=== PATIENT | male | born 1985 | race Two or more races ===

== ENCOUNTER 2016-10-09 00:38 | Emergency (ER) | payer OTHER ==
[2016-10-09 01:10] LABS: ALBUMIN 4.7 g/dL (3.5-5.0); ALKALINE PHOSPHATASE 155 U/L (38-126); ALT 29 U/L (21-72); AST 21 U/L (17-59); BILIRUBIN, DIRECT 0.3 mg/dL (0.0-0.4); BILIRUBIN, TOTAL 1.1 mg/dL (0.2-1.3); BLOOD UREA NITROGEN 27 mg/dL (9-20); CHLORIDE 89 mmol/L (98-107); EST GLOMERULAR FILTRATION RATE > 60 mL/min; LIPASE 257 U/L (23-300); POTASSIUM 3.7 mmol/L (3.5-5.1); SODIUM 128 mmol/L (137-145); TOTAL PROTEIN 8.7 g/dL (6.3-8.2)
[2016-10-09] MEDS ORDERED: ONDANSETRON HCL 4 MG/2 ML VIAL ONE (01:10)
[2016-10-09] MEDS ORDERED: FAMOTIDINE IN SALINE, ISO-OSM 20 MG/50 ML PIGGYBACK IV ONE (01:11)
[2016-10-09 01:18] LABS: GLUCOSE 342 mg/dL (70-100)
[2016-10-09 01:20] LABS: BASOPHILS 0.2 % (0.0-2.0); EOSINOPHILS 0.1 % (0.0-6.0); HEMATOCRIT 50.3 % (42.0-54.0); HEMOGLOBIN 17.1 g/dL (14.0-18.0); LYMPHOCYTES 12.9 % (20.0-40.0); LYMPHOCYTES# 1.7 X 10^3uL (0.8-3.8); MEAN CORPUSCULAR HEMOGLOBIN 27.2 pg (29.0-35.0); MEAN PLATELET VOLUME 8.3 fL (7.4-10.4); MONOCYTES 5.5 % (2.0-10.0); MONOCYTES# 0.7 X 10^3uL (0.2-1.0); NEUTROPHILS# 10.9 X 10^3uL (2.6-6.7); PLATELET COUNT 397 X 10^3uL (130-440); RED BLOOD COUNT 6.29 X 10^6uL (4.20-6.10); RED CELL DISTRIBUTION WIDTH 12.4 % (11.5-14.5); WHITE BLOOD COUNT 13.3 X 10^3uL (3.9-10.7)
[2016-10-09] MEDS ORDERED: MAG-AL PLUS XS SUSP 30 ML UDC ONE (01:21)
[2016-10-09] MEDS ORDERED: SIMETHICONE CHEW 80 MG TABLET PO ONE (01:21)
[2016-10-09] MEDS ORDERED: LIDOCAINE VISCOUS 2% 15 ML UDC ONE (01:22)
[2016-10-09 01:34] LABS: NEUTROPHILS 81.3 % (54.0-75.0)
[2016-10-09] MEDS ORDERED: INSULIN REGULAR HUMAN 100 UNITS/ML ML ONE ×2 (01:46→02:04)
[2016-10-09] MEDS ORDERED: NORMAL SALINE 100 ML IV ONE (02:03)
[2016-10-09 02:06] LABS: ARTERIAL BLOOD GAS PCO2 32.9 mmHg (35-45)
[2016-10-09 02:07] LABS: ARTERIAL BLOOD GAS HCO3 21.5 mmol/L (22-26)
--- NOTE | 2016-10-09 03:44 | ER NURSING DOCUMENTATION ---
Nurse's Notes [facility] Name:Edwin Jerome Age:30 yrs Sex:Male :1985 Arrival Date:10/09/2016 Time:00:38 Bed5 Private MD: Diagnosis:Diabetic Ketoacidosis (uncontrolled).;Narcotic Withdrawal;Kinza Casillas Syndrome - Gastroesophageal laceration-hemorrhage Presentation: 10/09 00:46 Presenting complaint: [place] called and states pt is withdrawing from cocaine, meth, mk2 oxycodone, and heroine. Pt arrived 2 days ago and has been vomiting for 2 days. Pt received phenergan 12.5mg IM at 2230. Pt vomited after and had an episode of hematemesis which was confirmed with a hemoccult. Pt has a known esophageal ulcer. Pt is from [place]. Transition of care: Home. Care prior to arrival: IV initiated. gauge and site 18G LAC Glucose check. 308 Oxygen administered. IV Fluids given by EMS NS 1000 ml. 00:46 Method Of Arrival: EMS: 410 mk2 00:46 Acuity: PHILLIP 3 mk2 Triage Assessment: 00:53 General: Appears in no apparent distress, Behavior is drowsy, flat. Pain: Denies pain. mk2 Neuro: No deficits noted. Cardiovascular: Heart tones S1 S2. Respiratory: Breath sounds are clear bilaterally. GI: Reports nausea, vomiting, since 2 days esophageal ulcer, one episode of hematemesis. Derm: No deficits noted. Historical: - Allergies: No known drug Allergies; - Home Meds: 1. metformin 1,000 mg oral tab 1 tab 2 times per day 2. Simvastatin Oral 3. glyburide Oral - PMHx: Diabetes - NIDDM; hyperlipidemia; - PSHx: None; - Tetanus: unknown. - Ebola Screening: : Patient negative for fever greater than or equal to 101.5 degrees Fahrenheit, and additional compatible Ebola Virus Disease symptoms. Patient denies exposure to infectious person. Patient denies travel to an Ebola-affected area in the 21 days before illness onset. No symptoms or risks identified at this time. . - Immunization history: Flu Vaccine < 1 year. - Social history: Smoking status: Patient states was never smoker of tobacco. Patient uses street drugs, cocaine, heroin, methylenedioxymethamphetamine, oxycodone, Patient/guardian denies using alcohol. Screenin:55 Infectious Disease Risk None. Abuse screen: Denies threats or abuse. Nutritional mk2 screening: No deficits noted. Assessment: 00:55 See Triage Assessment done by same RN. mk2 Vital Signs: 00:54 BP 150 / 85; Pulse 67; Resp 14; Temp 98.7; Pulse Ox 89% on R/A; Weight 68.04 kg; Height mk2 5 ft. 8 in. (172.72 cm); Pain 0/10; 02:22 BP 155 / 87; Pulse 97; Resp 17; Pulse Ox 92% ; Pain 0/10; mk4 02:23 BP 156 / 85; Pulse 99; Resp 19; Temp 99.1; Pulse Ox 93% on R/A; Pain 0/10; mk4 00:54 Body Mass Index 22.81 (68.04 kg, 172.72 cm) mk2 Frank Coma Score: 00:55 Eye Response: spontaneous(4). Verbal Response: oriented(5). Motor Response: obeys mk4 commands(6). Total: 15. ED Course: 00:39 Patient arrived in ED. ma1 00:44 Low Tidwell MD is Attending Physician. sc 00:46 Alanis Fitzpatrick, RN is Primary Nurse. mk2 00:49 Triage completed. mk2 00:55 Arm band placed on Bed in low position Call Light in Reach Gowned HOB Elevated Side mk2 rails up x2 Emesis basin given. 00:55 Labs ordered per protocol. Drawn by lab. mk4 01:01 Inserted peripheral IV: 20 gauge in left antecubital area and blood collected. mk4 01:02 Valuables Remains with patient. environmental monitoring specialist on. Pulse ox on. NIBP on. Warm blanket mk2 given. 01:02 Oxygen Oxygen administration via nasal cannula @ 2L/min. mk2 01:03 Report given to mk2 Administered Medications: 00:55 Drug: NS 0.9% 1000 ml; Route: IV; Rate: bolus; Site: left antecubital; mk2 02:16 Follow up: IV Status: Completed infusion; Infusion discontinued; IV Intake: 1000ml mk4 01:00 Drug: Pepcid 20 mg; Route: IVPB; Site: left antecubital; mk2 02:16 Follow up: IV Status: Completed infusion; Infusion discontinued; IV Intake: 50ml mk4 01:19 Drug: GI Cocktail w/o Donnatol - (Maalox Suspension 30 ml, Lidocaine Liquid 2 % 15 ml); mk4 Route: PO; 02:17 Follow up: Response: No adverse reaction; Nausea is decreased mk4 01:20 Drug: Simethicone Chewable Tablet 160 mg; Route: PO; mk4 02:17 Follow up: Response: No adverse reaction; Nausea is decreased mk4 01:20 Drug: NS 0.9% 1000 ml; Volume: 1000 ml; Route: IV; Rate: bolus; Infused Over: 45 mins; mk4 Site: left antecubital; Delivery: [place] [facility]; 02:17 Follow up: IV Status: Completed infusion; Infusion continued; IV Intake: 1000ml mk4 01:47 Drug: Insulin Regular Human 5 units; Route: IVP; Rate: 5 bolus; Infused Over: 3 mins; mk4 Site: right antecubital; 02:18 Follow up: Response: No adverse reaction mk4 02:00 Drug: Insulin Drip 3 units/hr - (Insulin Regular Human 100 units, NS 0.9% 100 ml); mk4 {Co-Signature: lasha3 (tyrese moraes).} Volume: 3 ml; Route: IV; Rate: calculated rate; Infused Over: 1 hrs; Site: left antecubital; Delivery: Pump; 02:46 Follow up: Rate change 5 units/hr mk4 Point of Care Testing: Blood Glucose: 02:45 Blood Glucose: 345 mg/dL; mk4 Ranges: Intake: 02:16 IV: 50ml; Total: 50ml. mk4 02:16 IV: 1000ml; Total: 1050ml. mk4 02:17 IV: 1000ml; Total: 2050ml. mk4 Outcome: 01:53 ER care complete, transfer ordered by sc 02:23 Condition: good 4 02:42 Transferred: Patient will be transferred to: [facility]. Facility [facility] Acceptance Time: October 09, 2016 at 02:42 Patient's face sheet was faxed to accepting facility. Face Sheet included patient's name, address, age, gender, contact information and insurance information. Patient will be transported by: Report called to: ICU sports information director Nurse and Physician Charting and Notes were sent to Accepting Facility. All tests and/or procedures with results, if applicable, were sent to accepting facility. 03:43 Patient left the ED. mk4 Signatures: Low Tidwell MD MD sc Kruger, Meg RN RN mk2 Yancy Young mk4 Marilyn Bright ds3
--- NOTE | 2016-10-09 03:44 | ER PHYSICIAN DOCUMENTATION ---
Physician Documentation [facility] Name:Edwin Jerome Age:30 yrs Sex:Male :1985 Arrival Date:10/09/2016 Time:00:38 Bed5 Private MD: Low Luis Disposition: 10/09/16 01:53 Transfer ordered to [facility]. 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 - Reason for transfer: Higher level of care. - Accepting physician is [facility] hospitalist collections clerk. - Condition is Serious. - Problem is new. - Symptoms have improved. COBRA Form completed? Yes Transfer - Mode of Transportation Ambulance HPI: 10/09 00:57 This 30 yrs old OOther Male presents to ER via EMS with complaints of Nausea/Vomiting. sc 00:57 The patient presents to the emergency department with nausea, with vomiting, that is sc intermittent, described as clear fluid, none visible but tested guiac +, pt reports known esophageal ulcer recently, no symptoms except lightheaded with standing, nausea / vomiting similar to previous withdrawal. Onset: The symptom(s)/episode began/occurred 2 day(s) ago. Possible causes: cocain, meth, heroin, oxycodone wd. Associated signs and symptoms: Pertinent positives: anorexia, nausea, vomiting. Severity of symptoms: At their worst the symptoms were severe. The patient has experienced a previous episode. Historical: - Allergies: No known drug Allergies; - Home Meds: 1. metformin 1,000 mg oral tab 1 tab 2 times per day 2. Simvastatin Oral 3. glyburide Oral - PMHx: Diabetes - NIDDM; hyperlipidemia; - PSHx: None; - Tetanus: unknown. - Ebola Screening: : Patient negative for fever greater than or equal to 101.5 degrees Fahrenheit, and additional compatible Ebola Virus Disease symptoms. Patient denies exposure to infectious person. Patient denies travel to an Ebola-affected area in the 21 days before illness onset. No symptoms or risks identified at this time. . - Immunization history: Flu Vaccine < 1 year. - Social history: Smoking status: Patient states was never smoker of tobacco. Patient uses street drugs, cocaine, heroin, methylenedioxymethamphetamine, oxycodone, Patient/guardian denies using alcohol. ROS: 01:00 Eyes: Negative for injury, pain, redness, and discharge. hi ENT: Negative for injury, pain, and discharge. Neck: Negative for injury, pain, and swelling. Cardiovascular: Negative for chest pain, palpitations, and edema. Respiratory: Negative for shortness of breath, cough, wheezing, and pleuritic chest pain. Back: Negative for injury and pain. MS/Extremity: Negative for injury and deformity. Skin: Negative for injury, rash, and discoloration. 01:00 Neuro: Negative for headache, weakness, numbness, tingling, and seizure. sc 01:00 Constitutional: Positive for body aches, chills, poor PO intake. 01:00 Abdomen/GI: Positive for nausea, vomiting, hematemesis, Negative for abdominal pain, diarrhea, constipation, abdominal cramps, abdominal distension, dysphagia, black/tarry stool. Exam: Head/Face: Normocephalic, atraumatic. Eyes: Pupils equal round and reactive to light, extra-ocular motions intact. Lids and lashes normal. Conjunctiva and sclera are non-icteric and not injected. Cornea within normal limits. Periorbital areas with no swelling, redness, or edema. ENT: Nares patent. No nasal discharge, no septal abnormalities noted. Tympanic membranes are normal and external auditory canals are clear. Oropharynx with no redness, swelling, or masses, exudates, or evidence of obstruction, uvula midline. Mucous membranes moist. Neck: Trachea midline, no thyromegaly or masses palpated, and no cervical lymphadenopathy. Supple, full range of motion without nuchal rigidity, or vertebral point tenderness. No meningismus. Chest/axilla: Normal chest wall appearance and motion. Nontender with no deformity. No lesions are appreciated. Respiratory: Lungs have equal breath sounds bilaterally, clear to auscultation and percussion. No rales, rhonchi or wheezes noted. No increased work of breathing, no retractions or nasal flaring. 01:00 Back: No spinal tenderness. No costovertebral tenderness. Full range of motion. hi 01:00 Constitutional: The patient appears alert, awake. 01:00 Cardiovascular: Rate: normal, Rhythm: regular. 01:00 Abdomen/GI: Inspection: abdomen appears normal, Bowel sounds: hyperactive, Palpation: abdomen is soft and non-tender. 01:00 Skin: Turgor: is poor. 01:00 Neuro: Orientation: is normal, Mentation: is normal. Vital Signs: 00:54 BP 150 / 85; Pulse 67; Resp 14; Temp 98.7; Pulse Ox 89% on R/A; Weight 68.04 kg; Height mk2 5 ft. 8 in. (172.72 cm); Pain 0/10; 02:22 BP 155 / 87; Pulse 97; Resp 17; Pulse Ox 92% ; Pain 0/10; mk4 02:23 BP 156 / 85; Pulse 99; Resp 19; Temp 99.1; Pulse Ox 93% on R/A; Pain 0/10; mk4 00:54 Body Mass Index 22.81 (68.04 kg, 172.72 cm) mk2 Frank Coma Score: 00:55 Eye Response: spontaneous(4). Verbal Response: oriented(5). Motor Response: obeys mk4 commands(6). Total: 15. MDM: 00:44 Patient medically screened. hi 01:02 Differential diagnosis: gastritis, dehydration from wd sxs, Kinza-Casillas tear or hi aggravated esophageal ulcer from severe vomiting. Data reviewed: vital signs, nurses notes, lab test result(s), and as a result, I will continue to observe the patient, administer IV fluids. 01:59 Physician consultation: Dr. Grajeda was called at 01:59, was contacted at 01:59, hi regarding patient's condition. 10/09 01:32 Order name: BASIC METABOLIC PANEL; Complete Time: 01:37 [facility] 10/09 01:32 Order name: HEPATIC PANEL; Complete Time: 01:37 [facility] 10/09 01:32 Order name: LIPASE; Complete Time: 01:37 [facility] 10/09 01:35 Order name: CBC AUTO DIF, MDIF/RMOR IF IND; Complete Time: 01:37 [facility] 10/09 02:05 Order name: BETA HYDROXYBUTYRATE EDID 10/09 02:08 Order name: ARTERIAL BLOOD GAS [facility] 10/09 00:46 Order name: Iv Saline Lock; Complete Time: 01:01 hi 10/09 01:02 Order name: Oxygen; Complete Time: 01:02 2 Dispensed Medications: 00:55 Drug: NS 0.9% 1000 ml; Route: IV; Rate: bolus; Site: left antecubital; mk2 02:16 Follow up: IV Status: Completed infusion; Infusion discontinued; IV Intake: 1000ml mk4 01:00 Drug: Pepcid 20 mg; Route: IVPB; Site: left antecubital; mk2 02:16 Follow up: IV Status: Completed infusion; Infusion discontinued; IV Intake: 50ml mk4 01:19 Drug: GI Cocktail w/o Donnatol - (Maalox Suspension 30 ml, Lidocaine Liquid 2 % 15 ml); mk4 Route: PO; 02:17 Follow up: Response: No adverse reaction; Nausea is decreased mk4 01:20 Drug: Simethicone Chewable Tablet 160 mg; Route: PO; mk4 02:17 Follow up: Response: No adverse reaction; Nausea is decreased mk4 01:20 Drug: NS 0.9% 1000 ml; Volume: 1000 ml; Route: IV; Rate: bolus; Infused Over: 45 mins; mk4 Site: left antecubital; Delivery: [place] Tub[facility]; 02:17 Follow up: IV Status: Completed infusion; Infusion continued; IV Intake: 1000ml 4 01:47 Drug: Insulin Regular Human 5 units; Route: IVP; Rate: 5 bolus; Infused Over: 3 mins; mk4 Site: right antecubital; 02:18 Follow up: Response: No adverse reaction 4 02:00 Drug: Insulin Drip 3 units/hr - (Insulin Regular Human 100 units, NS 0.9% 100 ml); mk4 {Co-Signature: ds3 (tyrese moraes).} Volume: 3 ml; Route: IV; Rate: calculated rate; Infused Over: 1 hrs; Site: left antecubital; Delivery: Pump; 02:46 Follow up: Rate change 5 units/hr 4 Point of Care Testing: Blood Glucose: 02:45 Blood Glucose: 345 mg/dL; mk4 Ranges: Critical Glucose Levels:Adult <50 mg/dl or >400 mg/dl <40 mg/dl or >180 mg/dl Signatures: Low Tidwell MD MD sc Kruger, Meg RN TANNER [email or web address] Yancy Young mk4 tyrese moraes ds3
== END 2016-10-09 03:43 | disposition short-term general hospital (02) ==
LOC: ER 00:38
DX: E11.65 Type 2 diabetes mellitus with hyperglycemia (principal); K22.6 Gastro-esophageal laceration-hemorrhage syndrome; F11.93 Opioid use, unspecified with withdrawal; M79.1 Myalgia; E86.0 Dehydration; Z79.899 Other long term (current) drug therapy; Z99.89 Dependence on other enabling machines and devices; Z74.3 Need for continuous supervision
CPT/HCPCS: 36600; 80048; 80076; 82010; 82803; 83690; 85025; 96365; 96375; 99285; A0425; A0427; J1815; J2405

== ENCOUNTER 2016-10-18 00:06 | Emergency (ER) | payer OTHER ==
[2016-10-18] MEDS ORDERED: ONDANSETRON HCL 4 MG/2 ML VIAL ONE (00:27)
[2016-10-18] MEDS ORDERED: ACETAMINOPHEN 1,000 MG/100 ML VIAL IV ONE (00:42)
[2016-10-18] MEDS ORDERED: MAG-AL PLUS XS SUSP 30 ML UDC ONE (00:42)
[2016-10-18] MEDS ORDERED: PHENOBARB/HYOSCY/ATROPINE/SCOP 16.2 MG/5 ML SYR ONE (00:42)
[2016-10-18] MEDS ORDERED: LIDOCAINE VISCOUS 2% 15 ML UDC ONE (00:43)
[2016-10-18 00:53] LABS: ALBUMIN 4.1 g/dL (3.5-5.0); ALKALINE PHOSPHATASE 129 U/L (38-126); ALT 39 U/L (21-72); AST 16 U/L (17-59); BILIRUBIN, DIRECT 0.3 mg/dL (0.0-0.4); BILIRUBIN, TOTAL 0.4 mg/dL (0.2-1.3); BLOOD UREA NITROGEN 16 mg/dL (9-20); CALCIUM 9.9 mg/dL (8.4-10.2); CHLORIDE 100 mmol/L (98-107); EST GLOMERULAR FILTRATION RATE > 60 mL/min; LIPASE 452 U/L (23-300); POTASSIUM 4.1 mmol/L (3.5-5.1); SODIUM 136 mmol/L (137-145); TOTAL PROTEIN 7.2 g/dL (6.3-8.2)
[2016-10-18 00:56] LABS: GLUCOSE 282 mg/dL (70-100)
[2016-10-18 00:57] LABS: BASOPHILS 0.3 % (0.0-2.0); EOSINOPHILS 1.3 % (0.0-6.0); EOSINOPHILS# 0.2 X 10^3uL (0.0-0.4); HEMOGLOBIN 14.1 g/dL (14.0-18.0); LYMPHOCYTES 26.2 % (20.0-40.0); LYMPHOCYTES# 3.2 X 10^3uL (0.8-3.8); MEAN CELL VOLUME 80.8 fL (80.0-100.0); MEAN CORPUS. HGB CONCENTRATION 33.5 g/dL (32.0-36.0); MEAN CORPUSCULAR HEMOGLOBIN 27.1 pg (29.0-35.0); MONOCYTES 6.3 % (2.0-10.0); MONOCYTES# 0.8 X 10^3uL (0.2-1.0); NEUTROPHILS 65.9 % (54.0-75.0); PLATELET COUNT 333 X 10^3uL (130-440); WHITE BLOOD COUNT 12.2 X 10^3uL (3.9-10.7)
[2016-10-18 01:00] LABS: H PYLORI IGG ANTIBODY POSITIVE
[2016-10-18] MEDS ORDERED: ONDANSETRON ODT PREPAC 4 MG TAB.RAPDIS PO ONE (01:50)
--- NOTE | 2016-10-18 02:13 | ER NURSING DOCUMENTATION ---
Nurse's Notes [facility] Name:Edwin Jerome Age:30 yrs Sex:Male :1985 Arrival Date:10/18/2016 Time:00:06 Bed4 Private MD:Physician, No Diagnosis:Abdominal Pain, Epigastric;Peptic Ulcer Disease (PUD)-: H. pylori positive;Dehydration Presentation: 10/18 00:09 Presenting complaint: Patient states: Abdominal pain x 1 day. Transition of care: Home. [facility] 00:09 Method Of Arrival: Walk In [facility] 00:09 Acuity: PHILLIP 3 [facility] Triage Assessment: 00:44 General: Appears comfortable, Behavior is cooperative. Pain: Complains of pain in [facility] abdomen diffusely. EENT: No deficits noted. Neuro: No deficits noted. Cardiovascular: Chest pain is denied. Respiratory: Airway is patent Respiratory effort is even, unlabored, Respiratory pattern is regular, symmetrical. GI: Abdomen is flat, Bowel sounds present X 4 quads. Abdomen is tender to palpation in right upper quadrant and left upper quadrant. : No deficits noted. Derm: No deficits noted. Musculoskeletal: No deficits noted. Historical: - Allergies: No known drug Allergies; - Home Meds: 1. metformin 1,000 mg oral tab 1 tab 2 times per day 2. Simvastatin Oral 3. glyburide Oral - PMHx: DIABETES - NIDDM; - Tetanus: < 10 years. - Ebola Screening: : No symptoms or risks identified at this time. . - Social history: Smoking status: Patient states was never smoker of tobacco. Screenin:55 Infectious Disease Risk None. Abuse screen: Denies threats or abuse. Nutritional [facility] screening: No deficits noted. Assessment: 00:55 See Triage Assessment done by same RN. 4 Vital Signs: 00:54 BP 137 / 96; Pulse 89; Resp 16; Temp 98.8; Pulse Ox 94% on R/A; Weight 74.84 kg; Height mk4 5 ft. 7 in. (170.18 cm); Pain 6/10; 01:59 BP 132 / 81; Pulse 79; Resp 18; Temp 97.4; Pulse Ox 96% on R/A; Pain 2/10; mk4 00:54 Body Mass Index 25.84 (74.84 kg, 170.18 cm) 4 Frank Coma Score: 00:35 Eye Response: spontaneous(4). Verbal Response: oriented(5). Motor Response: obeys cd commands(6). Total: 15. ED Course: 00:07 Patient arrived in ED. em2 00:07 Physician, [place] is Private Physician. em2 00:08 Yancy Young is Primary Nurse. mk4 00:09 Triage completed. mk4 00:12 Bobby Barber MD is Attending Physician. cd 00:31 Inserted saline lock: 20 gauge in left antecubital area and blood collected. em1 00:55 Allergy Band Placed Arm band placed on Bed in low position Call Light in Reach Gowned mk4 Side rails up x2. Labs ordered per protocol. 00:56 Valuables Remains with patient. Pulse Ox - RN Monitoring Only NIBP On - RN Monitoring mk4 Only. 01:39 Discontinued IV bleeding controlled, pressure dressing applied. em1 Administered Medications: Completed: NS 0.9% 1000 ml IV at 150 ml/hr continuous Completed: NS 0.9% 1000 ml IV at bolus once 00:37 Drug: Zofran 4 mg; Route: IVP; Rate: 4 bolus; Infused Over: 2 mins; Site: right forearm;mk4 01:41 Follow up: Response: No adverse reaction; Nausea is decreased mk4 00:39 Drug: NS 0.9% 1000 ml; Volume: 1000 ml; Route: IV; Rate: bolus; Infused Over: 45 mins; mk4 Site: right forearm; Delivery: [place] [facility]; 01:41 Follow up: IV Status: Completed infusion; Infusion discontinued; IV Intake: 1000ml mk4 00:39 Drug: Ofirmev ; MAX of 1000 mg, give 20 mg/kg; Volume: 100 ml; Route: IV; Rate: mk4 calculated rate; Infused Over: 15 mins; Site: right femoral; Delivery: [place] [facility]; 01:51 Follow up: IV Status: Completed infusion; Infusion discontinued mk4 00:40 Drug: GI Cocktail w/ Donnatol - (Maalox Suspension 30 ml, Phenobarbital-Belladonna 15 mk4 ml, Lidocaine Liquid 2 % 15 ml); Route: PO; 01:55 Follow up: Response: No adverse reaction; Pain is decreased mk4 00:41 Drug: NS 0.9% 1000 ml; Volume: 1000 ml; Route: IV; Rate: 150 ml/hr; Infused Over: 2 mk4 hrs; Site: right forearm; Delivery: [place] [facility]; 01:48 Follow up: IV Status: Completed infusion; Infusion discontinued; IV Intake: 1000ml mk4 01:34 Drug: Zofran 1 tablet; Route: PO; mk4 01:57 Follow up: Response: Pharmacy closed - take home med pack mk4 Intake: 01:41 IV: 1000ml; Total: 1000ml. mk4 01:48 IV: 1000ml; Total: 2000ml. mk4 Outcome: 01:13 Discharge ordered by . cd 01:59 Discharged to home ambulatory, [place] staff [facility] 01:59 Condition: good 01:59 Report given to Nicki RN 01:59 Discharge Assessment: Patient awake, alert and oriented x 3. No cognitive and/or functional deficits noted. Patient verbalized understanding of disposition instructions. Patient awake and alert. 01:59 Discharge instructions given to patient, Instructed on discharge instructions, follow up and referral plans. medication usage, Demonstrated understanding of instructions, medications, Prescriptions given X 1. 02:12 Patient left the ED. mk4 10/19 11:21 Discharge F/U Call: Unable to reach: no answer Signatures: Bobby Barber MD MD cd [employer]in[employer], Jayne-tech em1 Meinimaking-reg, Jayne-reg em2 Yancy Young Shyann Guerrero
--- NOTE | 2016-10-18 02:14 | ER PHYSICIAN DOCUMENTATION ---
Physician Documentation [facility] Name:Edwin Jerome Age:30 yrs Sex:Male :1985 Arrival Date:10/18/2016 Time:00:06 Bed4 Private MD:Physician, No ED Bobby Rice Disposition: 10/18 01:21 Chart complete. cd Disposition: 10/18/16 01:13 Discharged to Home/Self Care. Impression: Abdominal Pain, Epigastric, Peptic Ulcer Disease (PUD) - : H. pylori positive, Dehydration. - Condition is Good. - Discharge Instructions: ABDOMINAL PAIN, Unkown Cause, (Male), DEHYDRATION (6y-Adult), PEPTIC ULCER (H. Pylori Infection only). - Medical Reconciliation form form. - Follow up: Private Physician; When: Today; Reason: Recheck today's complaints, Continuance of care. - Problem is new. - Symptoms are resolved. - Notes: Your H. pylori test was POSITIVE in your blood. You will need to be treated with the following regimen; Rabeprozole 20mg PO QDay AND Amoxil 1 gram PO BID for the first 5 days....then.... Rabeprozole 20mg PO QDay AND Clarithromycin 500mg PO QDay AND Tinidozole 500mg PO BID for the next 5 days..... This sequential therapy has a 90% cure rate. Please follow the regimen as written above. Avoid acidic, spicey foods. Avoid [place] drinks and tomatoe based foods. Take Maalox 30ml by mouth one houre before meals and one hour after meals and at bedtime for 3 days to neutralize the acids in your stomach. Drink 2 - 3 quarts of water every day. HPI: 00:29 This 30 yrs old OOther Male presents to ER via Walk In with complaints of Abdominal cd Pain. 00:29 The patient presents with abdominal pain in the left upper quadrant. Onset: The cd symptoms/episode began/occurred acutely, yesterday, at 21:30. The symptoms do not radiate. Associated signs and symptoms: Pertinent positives: anorexia, fever, nausea, vomiting, Pertinent negatives: blood in stools, constipation, diarrhea, dysuria, shortness of breath, vomiting blood. The symptoms are described as achy, constant. Modifying factors: The symptoms are alleviated by nothing, the symptoms are aggravated by touching the area. Severity of pain: At its worst the pain was moderate in the emergency department the pain is unchanged. Risk factors for AAA: none. The patient has experienced similar episodes in the past, several times, since being at [facility]. He has been at [facility] for 2 weeks. He denies any ETOH addiction recently, but states he drank a lot of alcohol in the past. He has never had Acute Pancreatitis. He still has his appendix, but has not had pain in his RLQ of his abdomen. He believes his H. Pylori blood test was positive in the past and was recommended antibiotics for treatment ...but he never took the antibiotics.. Historical: - Allergies: No known drug Allergies; - Home Meds: 1. metformin 1,000 mg oral tab 1 tab 2 times per day 2. Simvastatin Oral 3. glyburide Oral - PMHx: DIABETES - NIDDM; - Tetanus: < 10 years. - Ebola Screening: : No symptoms or risks identified at this time. . - Social history: Smoking status: Patient states was never smoker of tobacco. ROS: 00:35 ENT: Negative for injury, pain, epistaxis and discharge. cd Neck: Negative for injury, pain, stiffness and swelling. Cardiovascular: Negative for chest pain, palpitations, edema and pleuritic pain. Respiratory: Negative for shortness of breath, dyspnea on exertion, cough, sputum production, wheezing, hemoptysis and pleuritic chest pain. Back: Negative for injury, pain or muscle spasms. : Negative for injury, bleeding, discharge, swelling, dysuria, frequency or urgency. MS/Extremity: Negative for injury, deformity, edema, calf tenderness, pain or coldness. Skin: Negative for injury, rash, itching and discoloration. 00:35 Neuro: Negative for headache, weakness, numbness, tingling, and seizure. cd 00:35 Constitutional: Positive for fever, poor PO intake, Negative for chills. 00:35 Abdomen/GI: Positive for abdominal pain, nausea, vomiting, anorexia, Negative for diarrhea, constipation, abdominal distension, hematemesis, black/tarry stool, rectal bleeding. 00:35 All other systems are negative. Exam: ENT: Nares patent. No nasal discharge, no septal abnormalities noted. Tympanic membranes are normal and external auditory canals are clear. Oropharynx with no redness, swelling, or masses, exudates, or evidence of obstruction, uvula midline. Mucous membranes dry Cardiovascular: Regular rate and rhythm with a normal S1 and S2. No gallops, murmurs, or rubs. Normal PMI, no JVD. No pulse deficits. Respiratory: Lungs have equal breath sounds bilaterally, clear to auscultation and percussion. No rales, rhonchi or wheezes noted. No increased work of breathing, no retractions or nasal flaring. Back: No spinal tenderness. No costovertebral tenderness. Full range of motion. Skin: Warm, dry with normal turgor. Normal color with no rashes, no lesions, and no evidence of cellulitis. MS/ Extremity: Pulses equal, no cyanosis. Neurovascular intact. Full, normal range of motion. 00:35 Neuro: Awake and alert, GCS 15, oriented to person, place, time, and situation. cd Cranial nerves II-XII grossly intact. Motor strength 5/5 in all extremities. Sensory grossly intact. Cerebellar exam normal. Normal gait. 00:35 Constitutional: The patient appears alert, awake, non-diaphoretic, non-toxic, well developed, well nourished, anxious. 00:35 Abdomen/GI: Inspection: abdomen appears normal, Bowel sounds: diminished, Palpation: mild abdominal tenderness, in the left upper quadrant, mass, is not appreciated, rebound tenderness, is not appreciated, voluntary guarding, is not appreciated, involuntary guarding, is not appreciated, no appreciated organomegaly, Rectal exam: the exam is deferred, Indicators: McBurney's point is not tender, Poole's sign is negative. Vital Signs: 00:54 BP 137 / 96; Pulse 89; Resp 16; Temp 98.8; Pulse Ox 94% on R/A; Weight 74.84 kg; Height mk4 5 ft. 7 in. (170.18 cm); Pain 6/10; 01:59 BP 132 / 81; Pulse 79; Resp 18; Temp 97.4; Pulse Ox 96% on R/A; Pain 2/10; mk4 00:54 Body Mass Index 25.84 (74.84 kg, 170.18 cm) mk4 [place] Coma Score: 00:35 Eye Response: spontaneous(4). Verbal Response: oriented(5). Motor Response: obeys cd commands(6). Total: 15. MDM: 00:12 Patient medically screened. 00:20 Data interpreted: Pulse oximetry: on room air is 92 %. Interpretation: normal. 00:36 Differential diagnosis: appendicitis, diverticulitis, gastritis, gastroesophageal cd reflux disease, Irritable bowel syndrome, non-specific abd pain, pancreatitis, Peptic Ulcer Disease, Pyelonephritis, Ureterolithiasis, urinary tract infection. 00:37 Data reviewed: vital signs, nurses notes, old medical records, and as a result, I will cd continue to observe the patient, administer IV fluids, NS bolus, NS maintenence, prescribe pain medication, acetaminophen, a GI Cocktail and Zofran. 10/18 01:00 Order name: CBC AUTO DIF, MDIF/RMOR IF IND; Complete Time: 01:04 EDDC 10/18 01:03 Interpretation: Normal Except: WHITE BLOOD COUNT 12.2. 10/18 01:00 Order name: BASIC METABOLIC PANEL; Complete Time: 01:04 EDMS 10/18 01:04 Interpretation: Normal Except: GLUCOSE 282; Hyperglycemia; History of NIDDM. 10/18 01:00 Order name: HEPATIC PANEL; Complete Time: 01:04 EDMS 10/18 01:04 Interpretation: Normal. 10/18 01:00 Order name: LIPASE; Complete Time: 01:04 EDDC 10/18 01:04 Interpretation: Normal Except: LIPASE 452; Mildly elevated. 10/18 01:01 Order name: H PYLORI IGG ANTIBODY; Complete Time: 01:04 EDMS 10/18 01:04 Interpretation: Abnormal: H PYLORI IGG ANTIBODY POSITIVE. 10/18 00:13 Order name: NPO; Complete Time: 00:40 cd Dispensed Medications: Completed: NS 0.9% 1000 ml IV at 150 ml/hr continuous Completed: NS 0.9% 1000 ml IV at bolus once 00:37 Drug: Zofran 4 mg; Route: IVP; Rate: 4 bolus; Infused Over: 2 mins; Site: right forearm;mk4 01:41 Follow up: Response: No adverse reaction; Nausea is decreased mk4 00:39 Drug: NS 0.9% 1000 ml; Volume: 1000 ml; Route: IV; Rate: bolus; Infused Over: 45 mins; mk4 Site: right forearm; Delivery: [place] [facility]; 01:41 Follow up: IV Status: Completed infusion; Infusion discontinued; IV Intake: 1000ml mk4 00:39 Drug: Ofirmev ; MAX of 1000 mg, give 20 mg/kg; Volume: 100 ml; Route: IV; Rate: mk4 calculated rate; Infused Over: 15 mins; Site: right femoral; Delivery: [place] [facility]; 01:51 Follow up: IV Status: Completed infusion; Infusion discontinued mk4 00:40 Drug: GI Cocktail w/ Donnatol - (Maalox Suspension 30 ml, Phenobarbital-Belladonna 15 mk4 ml, Lidocaine Liquid 2 % 15 ml); Route: PO; 01:55 Follow up: Response: No adverse reaction; Pain is decreased mk4 00:41 Drug: NS 0.9% 1000 ml; Volume: 1000 ml; Route: IV; Rate: 150 ml/hr; Infused Over: 2 mk4 hrs; Site: right forearm; Delivery: [place] [facility]; 01:48 Follow up: IV Status: Completed infusion; Infusion discontinued; IV Intake: 1000ml mk4 01:34 Drug: Zofran 1 tablet; Route: PO; mk4 01:57 Follow up: Response: Pharmacy closed - take home med pack mk4 Signatures: Bobby Barber MD MD cd King, Melody 4
== END 2016-10-18 02:13 | disposition home or self-care (01) ==
LOC: ER 00:06
DX: R10.13 Epigastric pain (principal); E86.0 Dehydration; K27.9 Peptic ulcer, site unspecified, unspecified as acute or chronic, without hemorrhage or perforation; B96.81 Helicobacter pylori [H. pylori] as the cause of diseases classified elsewhere; R11.2 Nausea with vomiting, unspecified; E11.9 Type 2 diabetes mellitus without complications; Z79.899 Other long term (current) drug therapy
CPT/HCPCS: 80048; 80076; 83690; 85025; 86677; 96365; 96375; 99284; J2405